=== PATIENT | female | born 1955 | race Hispanic/Latino ===

== ENCOUNTER 2016-06-02 12:00 | Outpatient (CLI) | payer OTHER | END 2016-06-02 12:01 | disposition home or self-care (01) | LOC: MADLAB 12:00 | PROVIDERS: ATTEND Family Medicine | DX: N76.0 Acute vaginitis (principal) | CPT/HCPCS: 36415; 87480; 87510; 87660 ==

== ENCOUNTER 2016-06-08 08:07 | Outpatient (CLI) | payer OTHER ==
[2016-06-08 08:36] LABS: Band 1 % (5-11); Eosinophils 4 % (0-10); Hemoglobin 14.4 g/dL (12.0-16.0); Lymphocytes 39 % (21-51); MDiff Complete? YES; Mean Corpuscular HGB CONC 32.3 g/dL (32.0-36.0); Mean Corpuscular Hemoglobin 27.9 pg (27.0-31.0); Mean Corpuscular Volume 86.4 fl (81.0-99.0); Mean Platelet Volume 7.5 fL (7.4-10.4); Monocytes 6 % (0-10); Neutrophil 47 % (42-75); Platelet Count 195 thou/uL (130-400); RBC Distribution Width 12.3 % (11.5-14.5); Reactive Lymphocytes 1 % (0-10); Red Blood Cell (RBC) Count 5.16 mill/uL (4.20-5.40); White Blood Cell (WBC) Count 5.4 thou/uL (4.8-10.8)
[2016-06-08 08:39] LABS: Hemoglobin A1c 12.7 % (4.0-6.0)
[2016-06-08 08:50] LABS: ALT (SGPT) 36 U/L (0-55); AST (SGOT) 26 U/L (5-34); Albumin 3.8 g/dL (3.5-5.0); Alkaline Phosphatase 113 U/L (40-150); Anion Gap 14 mmol/L (10-20); BUN (Urea Nitrogen) 9 mg/dL (9.8-20.1); Bilirubin, Total 0.5 mg/dL (0.2-1.2); Calc. Creatinine Clearance 0 mL/min (70-130); Carbon Dioxide 23 mmol/L (22-29); Cardiac Risk 6.4 (Less than 4.5); Chloride 103 mmol/L (98-107); Cholesterol 223 mg/dL (< 200 Desired); Estimated GFR-MDRD 64; Globulin 3.1 g/dL (2.4-3.5); Glucose 325 mg/dL (70-105); HDL Cholesterol 35 mg/dL (>60 Neg Risk); LDL Cholesterol, Calculated 152 mg/dL; Protein, Total 6.9 g/dL (6.0-8.3); Sodium 136 mmol/L (136-145); Triglycerides 180 mg/dL (Less than 150)
[2016-06-08 09:11] LABS: Free T4 (Free Thyroxine) 0.98 ng/dL (0.70-1.48); Thyroid Stimulating Hormone 8.1407 uIU/mL (0.35-4.94)
== END 2016-06-08 08:08 ==
LOC: MADLABBHPM 08:07
PROVIDERS: ATTEND Family Medicine
DX: N76.0 Acute vaginitis (principal); R81 Glycosuria; Z86.39 Personal history of other endocrine, nutritional and metabolic disease
CPT/HCPCS: 36415; 80053; 80061; 83036; 84439; 84443; 85025

== ENCOUNTER 2016-07-29 09:19 | Outpatient (CLI) | payer OTHER ==
[2016-07-29 17:32] LABS: Hemoglobin A1c 8.7 % (4.0-6.0)
[2016-07-29 17:45] LABS: Creatinine, Urine 136.61 mg/dL (47-110)
[2016-07-29 17:56] LABS: Microalbumin Urine Less than 1.0 mg/dL (0.5-50.0); Microalbumin/Creat Ratio 7.3 mg/g (Less than 30)
[2016-07-29 18:18] LABS: ALT (SGPT) 20 U/L (8-55); AST (SGOT) 15 U/L (5-34); Albumin 3.9 g/dL (3.5-5.0); Alkaline Phosphatase 80 U/L (40-150); Anion Gap 13 mmol/L (10-20); BUN (Urea Nitrogen) 14 mg/dL (9.8-20.1); Bilirubin, Total 0.3 mg/dL (0.2-1.2); Calc. Creatinine Clearance 0 mL/min (70-130); Calcium 9.1 mg/dL (7.8-10.44); Carbon Dioxide 24 mmol/L (22-29); Chloride 108 mmol/L (98-107); Estimated GFR-MDRD 74; Globulin 2.7 g/dL (2.4-3.5); Glucose 151 mg/dL (70-105); Potassium 4.1 mmol/L (3.5-5.1); Protein, Total 6.6 g/dL (6.0-8.3); Sodium 141 mmol/L (136-145)
== END 2016-07-29 09:20 | disposition home or self-care (01) ==
LOC: MADLABBHPM 09:19
PROVIDERS: ATTEND Family Medicine
DX: E11.65 Type 2 diabetes mellitus with hyperglycemia (principal); E03.9 Hypothyroidism, unspecified
CPT/HCPCS: 36415; 80053; 82043; 83036; 84443

== ENCOUNTER 2016-11-02 09:10 | Outpatient (CLI) | payer OTHER ==
[2016-11-02 09:54] LABS: Hemoglobin A1c 6.2 % (4.0-6.0)
[2016-11-02 10:28] LABS: ALT (SGPT) 18 U/L (8-55); AST (SGOT) 18 U/L (5-34); Albumin 3.8 g/dL (3.4-4.8); Alkaline Phosphatase 95 U/L (40-150); Anion Gap 12 mmol/L (10-20); BUN (Urea Nitrogen) 13 mg/dL (9.8-20.1); Bilirubin, Total 0.6 mg/dL (0.2-1.2); Calc. Creatinine Clearance 0 mL/min (70-130); Calcium 9.5 mg/dL (7.8-10.44); Carbon Dioxide 28 mmol/L (23-31); Cardiac Risk 4.2 (Less than 4.5); Chloride 106 mmol/L (98-107); Cholesterol 148 mg/dl (< 200 Desired); Estimated GFR-MDRD 69; Globulin 3.4 g/dL (2.4-3.5); Glucose 125 mg/dL (80-115); HDL Cholesterol 35 mg/dL (>60 Neg Risk); LDL Cholesterol, Calculated 91 mg/dL; Potassium 4.2 mmol/L (3.5-5.1); Protein, Total 7.2 g/dL (6.0-8.3); Sodium 142 mmol/L (136-145); Triglycerides 110 mg/dL (Less than 150)
== END 2016-11-02 09:11 | disposition home or self-care (01) ==
LOC: MADLABBHPM 09:10
PROVIDERS: ATTEND Family Medicine
DX: E78.5 Hyperlipidemia, unspecified (principal); E11.65 Type 2 diabetes mellitus with hyperglycemia; E03.9 Hypothyroidism, unspecified
CPT/HCPCS: 36415; 80053; 80061; 83036; 84443

== ENCOUNTER 2019-11-14 10:37 | Outpatient (CLI) | payer OTHER ==
--- NOTE | 2019-11-15 09:30 | RAD ---
RIGHT FOOT 3 VIEWS: Date: 11/14/2019 HISTORY: Injury from a fall. Contusion fifth digit. FINDINGS: There is no evidence for acute fracture or dislocation. If patient has persistent worsening pain or o ther symptoms, consider short-term follow-up study to include AP internal rotation oblique and latera l views. IMPRESSION: No acute fracture or dislocation. Short-term follow-up is suggested if the patient has persistent or worsening unresolved symptoms. POS: OFF
== END 2019-11-14 10:38 | disposition home or self-care (01) ==
LOC: MADRAD 10:37
PROVIDERS: ATTEND Family Medicine
DX: S90.122A Contusion of left lesser toe(s) without damage to nail, initial encounter (principal); S90.30XA Contusion of unspecified foot, initial encounter

== ENCOUNTER 2020-06-02 17:18 | Emergency (ER) | payer SELFPAY ==
[2020-06-02 18:47] LABS: #Basophils 0.2 thou/uL (0.0-0.2); #Eosinphils 0.3 thou/uL (0.0-0.7); #Lymphocytes 2.8 thou/uL (1.20-3.40); #Monocytes 0.5 thou/uL (0.11-0.59); %Basophils 2.7 % (0.0-1.0); %Eosinophils 3.5 % (0.0-10.0); %Lymphocytes 35.6 % (21.0-51.0); %Neutrophils 51.2 % (42.0-75.0); Hemoglobin 14.5 g/dL (12.0-16.0); Mean Corpuscular HGB CONC 32.3 g/dL (32.0-36.0); Mean Corpuscular Hemoglobin 27.5 pg (27.0-31.0); Mean Corpuscular Volume 85.2 fL (78.0-98.0); Mean Platelet Volume 7.1 fL (7.4-10.4); Platelet Count 245 thou/uL (130-400); RBC Distribution Width 12.6 % (11.5-14.5); Red Blood Cell (RBC) Count 5.29 mill/uL (4.20-5.40); White Blood Cell (WBC) Count 7.8 thou/uL (4.8-10.8)
[2020-06-02] MEDS ORDERED: Benzonatate 100 MG CAP ONE (18:57)
[2020-06-02] MEDS ORDERED: Lidocaine Viscous Sol 2% 15 ml UD Cup ONE (18:57)
[2020-06-02] MEDS ORDERED: Mag-Al Plus 1200 MG/1200 MG/120 MG/30 ML UDCUP ONE (18:57)
[2020-06-02 19:01] LABS: ALT (SGPT) 25 U/L (8-55); AST (SGOT) 19 U/L (5-34); Albumin 4.3 g/dL (3.4-4.8); Alkaline Phosphatase 109 U/L (40-110); Anion Gap 14 mmol/L (10-20); BUN (Urea Nitrogen) 11 mg/dL (9.8-20.1); Bilirubin, Total 0.5 mg/dL (0.2-1.2); Calc. Creatinine Clearance 0 mL/min (70-130); Calcium 9.4 mg/dL (7.8-10.44); Carbon Dioxide 26 mmol/L (23-31); Chloride 108 mmol/L (98-107); Globulin 3.5 g/dL (2.4-3.5); Glucose 91 mg/dL (80-115); Potassium 3.9 mmol/L (3.5-5.1); Protein, Total 7.8 g/dL (5.8-8.1); Sodium 144 mmol/L (136-145)
[2020-06-02] MEDS ORDERED: Azithromycin 250 MG TAB ONE (20:47)
[2020-06-03 18:51] LABS: SARS-CoV-2 PCR by NAA Not Detected (NotDetected)
== END 2020-06-02 20:45 | disposition home or self-care (01) ==
LOC: MADERS 17:18
DX: J06.9 Acute upper respiratory infection, unspecified (principal); H66.90 Otitis media, unspecified, unspecified ear; Z20.822 Contact with and (suspected) exposure to COVID-19; E03.9 Hypothyroidism, unspecified; E78.5 Hyperlipidemia, unspecified; E78.00 Pure hypercholesterolemia, unspecified; I10 Essential (primary) hypertension; R73.03 Prediabetes; Z79.899 Other long term (current) drug therapy; Z79.84 Long term (current) use of oral hypoglycemic drugs
CPT/HCPCS: 71045; 80053; 85025; 87081; 87430; 87635; 87804; 93005; U0003; U0005

== ENCOUNTER 2021-09-16 09:55 | Outpatient (CLI) | payer MEDICARE | END 2021-09-16 09:56 | disposition home or self-care (01) | LOC: MADLAB 09:55 → MADRAD 09:56 | PROVIDERS: ATTEND Family Medicine | DX: M25.552 Pain in left hip (principal) ==